=== PATIENT | male | born 1995 | race Caucasian/White ===

== ENCOUNTER 2023-09-21 10:36 | Outpatient (REF) | payer MEDICAID, SELFPAY ==
[2023-09-21 14:51] LABS: Calculated LDL 164 mg/dL (<100); Cholesterol 232 mg/dL (<200); HDL Cholesterol 61 mg/dL (40-60); Triglyceride 38 mg/dL (<150)
== END 2023-09-21 10:37 | disposition home or self-care (01) ==
LOC: NCHCN 10:36
PROVIDERS: Visit Provider Family Medicine
DX: Z13.220 Encounter for screening for lipoid disorders (principal)
CPT/HCPCS: 80061

== ENCOUNTER 2024-02-08 15:01 | Outpatient (REF) | payer MEDICAID, SELFPAY ==
--- OUTSIDE RECORDS SUMMARY | 2024-02-08 15:04 | XMS_ITS | Encounter Summary ---
Author Organization [facility] Address [address] [place] [address] Care Team Providers Care Tie Bucker Name Role Phone Uriah Olsen MD Primary Care Provider [phone] Reason for Referral * PT/OT/ST (Routine/Next Available) - Specialty Report Received Specialty Diagnoses / Procedures Referred By Liz lunsford Referred To Contact Rehab Therapies Diagnoses Acute midline low back pain without sciatica Right inguinal pain Rosie Holm PA-C [address] [facility] [address] [place] [address] [facility] [address] [place] [id number] Referral ID Status Reason Start Date Expiration Date Visits Requested Visits Authorized [id number] Specialty Report Received Specialty Services Required 3 1 1 Question Answer Scheduling Comments (optional ? describe specific scheduling needs if applicable): prefers [facility] Reason for Request: low back pain/right ant hip/inguinal pain Comments This referral may serve as a referral to occupational therapy if appropriate. Reason for Visit * Reason Comments Hip Pain Rt hip pain x 3 days and lower back pain x 3 weeks Cough Started yesterday Sore Throat Started last night Encounter Details Date Type Department Care Team (Late st Contact Info) Description 04/29/2023 9:15 EST Walk-In [facility] [address] [place] [id number] Rosie Holm PA-C [address] [facility] [address] [place] [address] Acute midline low back pain without sciatica (Primary Dx); Right inguinal pain Social History Tobacco Use Types Packs/Day Years Used Date Smoking Tobacco: Never Smokeless Tobacco: Never Alcohol Use Standard Drinks/Week Comments No 0 (1 standard drink = 0.6 oz pur e alcohol) Sex and Gender Information Value Date Recorded Sex Assigned at Not on file Gender Identity Male 04/29/2023 9:02 EST Sexual Orientation Not on file documented as of this encounter Last Filed Vital Signs Vital Sign Reading Time Taken Comments Blood Pressure 142/77 04/29/2023918 EST Pulse 71 04/29/2023 09 EST Temperature 36.7 ??C (98.1 ??F) 04/29/2023 0919 EST Respiratory Rate 20 04/29/2023 0919 EST Oxygen Saturation 99% 04/29/2023 09 EST Inhaled Oxygen Concentration - - Weight - - Height - - Body Mass Index - - documented in this encounter Functional Status Functional Status Response Date of Assess ment Because of a physical, menta l, or emotional condition, does this person have difficulty doing errands alone such as visiting a doctor's office or shopping? No 03/17/2022 Cognitive Status Response Date of Assessm ent Because of a physical, menta l, or emotional condition, does this person have serious difficulty concentrating, remembering, or making decisions? No 03/17/2022 documented as of this encounter Patient Instructions * Patient Instructions* Rosie Holm PA-C - 04/29/2023 9:15 EST Chris- You were seen today for a 3-week history of low back pain, in addition some new right-sided front hip groin discomfort the last 3 days. On exam your vital signs are normal. Her physical exam does show some discomfort when attempting toengage your hip flexors and internal rotator tendons and muscles. X-ray imaging was done given your constellation of symptoms. I see perhaps a very slight amount of early degenerative or arthritic changes in your very low back. Your hip films and pelvis appear normal. A formal radiology read will be done in the next hour. If the radiologist sees anything different Iwill call you. You do have a job that requires a moderate amount of lifting and bending. You also have some thingsthat you carry about your waist that might be causing some pinching of superficial nerves that could cause some discomfort as well as irritating your tendons and muscles that help to flex and rotate your leg. Would have you try a short course of muscle relaxants. I would be super conscious of your tool belt, I would try to carry a little higher or avoid wearingit for a week to see if this makes a difference. In addition I would advise not curing your wallet in the front pocket as this also creates a pressure point and could cause some issues. If you have not already I would recommend a regular schedule of ibuprofen 600 mg, 3 times a day with food for 5 days. I would try heat to the affected area at the front side. If your symptoms or not improving in 5 to 7 days you need a recheck either here or with your primary care provider. documented in this encounter Progress Notes * Samantha Malcolm LPN - 04/29/2023 0915 EST CC/HPI: Covid Screening: In the last 72 hours, has the patient had: New or unusual cough, shortness of breath, new nasal congestion, sore throat, fever, chills, body aches, or new loss of taste or smell without a reasonable alternative diagnosis*? (If yes, assign to [facility])- cough,slight s/t,body aches In the past 10 days, has the patient had a positive Covid test OR a confirmed close Covid exposure (<6ft for > 15mins in 24hr period)? (if yes, assign to [facility], regardless of vaccination status)-no-neg home test yesterday *may be determined by RN or in discussion with available provider (PIPELINES SUPERINTENDENT's and CCA's can defer to Charge Nurse to complete triage when appropriate) PCP: Uriah Olsen * Rosie Holm PA-C - 04/29/2023 1923 EST [facility] [place] [facility] Chief Complaint(s): Chief Complaint Patient presents with Hip Pain Rt hip pain x 3 days and lower back pain x 3 weeks Cough Started yesterday Sore Throat Started last night Assessment & Plan: Chris was seen today for hip pain, cough and sore throat. Diagnoses and all orders for this visit: Acute midline low back pain without sciatica - XR LUMBAR SPINE 2-3 VIEWS Right inguinal pain - XR HIP RIGHT 2-3 VIEWS, OPTIONAL PELVIS Chris Patel is a pleasant 28 y.o. male who presents with chief complaint of low back pain x 3 weeks. R anterior hip discomfort x 3 days. No known injury. Does wear tool belt, brown, bending lifting often. Denies fevers, sweats, chills. Vital signs are normal. PE with no gross abnl back; anterior hip with some discomfort on rotation/flex/ext. No hx fevers/mild intermittent pain only/not radicular and so low concern for infection/major nerve impingement. Xray imaging with mild early djd low lumbar. Favor msk; either imbalance low back/pelvic muscles and/or may be causing impingement right ant flexors w/tool belt/wallet locations. Would benefit from skilled PT. Referral placed. An appropriate medical screening examination was performed. The patient was assessed prior to discharge and deemed stable for discharge home. I printed material and reviewed home management and follow up in detail with patient, see patient instructions below. Patient is advised in use of [employer] to access any lab results or other pertinentvisit information. All questions are answered. Patient is advised to follow up for urgent reassessment for any new/worsening signs and symptoms here at [facility] or with the ER. Otherwise, follow up with PCP or [facility] is advised for symptoms that persist past current course of treatment or expected resolution as discussed. Patient verbalizes understanding and agreement with this plan of care. HPI: Onset bilat low back ain 3 weeks ago, not unusual, episodes in past, usually does not last this long. No pain buttocks/legs; no distal sensory strength changes. Last 3 days pain right low inguinal hip front region with certain movements and positions only. Primarily painful laying down on left side, preferred sleep position, ok/less if on back. Painful moving leg out to side, going from sit to stand. No mass appreciated. No fevers sweats chills. Is a brown. Wears very heavy tool belt daily. Keeps wallet in R front pocket, phone in left back pocket. ROS: ROS See HPI for details Objective: Vitals and nursing notes reviewed Examination: BP (!) 142/77 (BP Cuff Location: Right arm, BP Patient Position: Sitting, BP Cuff Sizes: Adult, long) Pulse 71 Temp 36.7 ??C (98.1 ??F) (Oral) Resp 20 SpO2 99% Physical Exam Constitutional: General: He is not in acute distress. Appearance: Normal appearance. Abdominal: General: There is no distension. Palpations: Abdomen is soft. There is no mass. Tenderness: There is no abdominal tenderness. Comments: With valsalva no appreciable mass right inguinal region and no reproduction of discomfort Musculoskeletal: Comments: Low back no gross deformity; wnl rom; non tender to palpation paraspine muscles, si and sciatic notch; hip full rom; mild discomfort active flexion; mild discomfort w/internal rotation seated; supine loading/rotating joint non tender; some discomfort with active flexion of hip/leg to extension; non tender trochanteric bursa Skin: General: Skin is warm and dry. Findings: No rash. Neurological: Mental Status: He is alert and oriented to person, place, and time. Sensory: No sensory deficit. Motor: No weakness. Gait: Gait normal. Deep Tendon Reflexes: Reflexes normal. Comments: Normal heel toe walk I independently interpreted any x-ray imaging done today as well as reviewed radiology reports. No gross abnormality appreciated by me; rads read pending at this time. Data reviewed with patient (past results): PMHx/pertinent labs/DI and pertinent recent OV's This note may be in part documented using Pin-Digital dictation software. Please forgive any errors, omissions or typos that may result from use of dictation. documented in this encounter Plan of Treatment Upcoming Encounters Date Type Department Care Team (Late st Contact Info) Description 03/04/2024 8:00 EST Office Visit [facility] Dermatology 3rd Floor [address] [address] Mikaela Scott PA-C [address] [facility], [address] [place] [phone] Scheduled Referrals Name Type Priority Associated Diagnoses Order Schedule AMB CONS/FOLLOW UP [place] [facility] [place]ine/Next Available Acute midline low back pain without sciatica Right inguinal pain Expected: 05/06/2023 (Approximate), Expires: 04/29/2024 documented as of this encounter Procedures Procedure Name Priority Date/Time Associated Diagnosis Comments XR LUMBAR SPINE 2-3 VIEWS STAT 04/29/2023 9:54 EST Acute midline low back pain without sciatica XR HIP RIGHT 2-3 VIEWS, OPTIONAL PELVIS STAT 04/29/2023 9:54 EST Right inguinal pain documented in this encounter Results * XR LUMBAR SPINE 2-3 VIEWS (04/29/2023 9:54 EST) Anatomical Region Laterality Modality Spine Computed Radiogr aphy 04/29/2023 9:43 EST Impressions 04/29/2023 10:02 EST Minimal degenerative disc disease at L4-L5 and L5-S1. No acute abnormality. THIS DOCUMENT HAS BEEN ELECTRONICALLY SIGNED BY VIVIAN MADDOX MD FOR ANY QUESTIONS OR CONCERNS REGARDING THIS REPORT PLEASE CALL [facility] AT [phone] Narrative 04/29/2023 10:02 EST PROCEDURE INFORMATION: Exam: XR Lumbosacral Spine Exam date and time: 04/29/2023 9:43 AM Age: 28 years old Clinical indication: Low back pain, unspecified; Additional info: Pain low back x 3 weeks worsening TECHNIQUE: Imaging protocol: Radiologic exam of the lumbosacral spine. Views: 2 or 3 views. COMPARISON: No relevant prior studies available. FINDINGS: Bones/joints: No fracture, malalignment or other acute bone or joint abnormality. Minimal chronic degenerative disease is present with mild narrowing of the L4-L5 and L5-S1 discs. Soft tissues: Unremarkable. Procedure Note Vivian Maddox MD - 04/29/2023 PROCEDURE INFORMATION: Exam: XR Lumbosacral Spine Exam date and time: 04/29/2023 9:43 AM Age: 28 years old Clinical indication: Low back pain, unspecified; Additional info: Pain low back x 3 weeks worsening TECHNIQUE: Imaging protocol: Radiologic exam of the lumbosacral spine. Views: 2 or 3 views. COMPARISON: No relevant prior studies available. FINDINGS: Bones/joints: No fracture, malalignment or other acute bone or joint abnormality. Minimal chronic degenerative disease is present with mild narrowing of the L4-L5 and L5-S1 discs. Soft tissues: Unremarkable. IMPRESSION Minimal degenerative disc disease at L4-L5 and L5-S1. No acute abnormality. THIS DOCUMENT HAS BEEN ELECTRONICALLY SIGNED BY VIVIAN MADDOX MD FOR ANY QUESTIONS OR CONCERNS REGARDING THIS REPORT PLEASE CALL [facility] [phone] Rosie Holm PA-C IMG DIAGNOSTIC I MAGING ORDERABLES * XR HIP RIGHT 2-3 VIEWS, OPTIONAL PELVIS (04/29/2023 9:54 EST) Anatomical Region Laterality Modality Lower Extremities Right Computed Radio graphy 04/29/2023 9:45 EST Impressions 04/29/2023 10:02 EST No significant abnormality. THIS DOCUMENT HAS BEEN ELECTRONICALLY SIGNED BY VIVIAN MADDOX MD FOR ANY QUESTIONS OR CONCERNS REGARDING THIS REPORT PLEASE CALL [facility] AT [phone] Narrative 04/29/2023 10:02 EST PROCEDURE INFORMATION: Exam: XR Right Hip Exam date and time: 04/29/2023 9:45 AM Age: 28 years old Clinical indication: Right lower quadrant pain; Hip pain; Right hip; Additional info: Pain right hip/inguinal region; No injury TECHNIQUE: Imaging protocol: Radiologic exam of the right hip. Views: 2 or 3 views hip with pelvis when performed. COMPARISON: CR XR LUMBAR SPINE 2-3 VIEWS 04/29/2023 9:43 AM FINDINGS: Bones/joints: Unremarkable. No acute fracture. Soft tissues: Unremarkable. Procedure Note Vivian Maddox MD - 04/29/2023 PROCEDURE INFORMATION: Exam: XR Right Hip Exam date and time: 04/29/2023 9:45 AM Age: 28 years old Clinical indication: Right lower quadrant pain; Hip pain; Right hip; Additional info: Pain right hip/inguinal region; No injury TECHNIQUE: Imaging protocol: Radiologic exam of the right hip. Views: 2 or 3 views hip with pelvis when performed. COMPARISON: CR XR LUMBAR SPINE 2-3 VIEWS 04/29/2023 9:43 AM FINDINGS: Bones/joints: Unremarkable. No acute fracture. Soft tissues: Unremarkable. IMPRESSION No significant abnormality. THIS DOCUMENT HAS BEEN ELECTRONICALLY SIGNED BY VIVIAN MADDOX MD FOR ANY QUESTIONS OR CONCERNS REGARDING THIS REPORT PLEASE CALL [facility] [phone] Rosie Holm PA-C IMAnny DIAGNOSTIC I MAGING ORDERABLES documented in this encounter Visit Diagnoses Diagnosis Acute midline low back pain without sciatica- Primary Right inguinal pain Abdominal pain, right lower quadrant documented in this encounter Historical Medications * This list may reflect changes made after this encounter. Medication Sig Dispensed Refills Start Date End Date diphenhydrAMINE-acetamino phen 25-500 mg tablet Take 2 Tablets by mouth at bedtime as needed. added in this encounter Care Teams Tie Bucker Relationship Specialty Start Date End Date Uriah Olsen MD [address] [place] [address] PCP - General 05/29/11 documented as of this encounter
--- OUTSIDE RECORDS SUMMARY | 2024-02-08 15:04 | XMS_ITS | Encounter Summary ---
Author Organization [facility] Address [address] [place] [address] Care Team Providers Care Ancillary Services Manager Therapy Name Role Phone Uriah Olsen MD Primary Care Provider [phone] Encounter Details Date Type Department Care Team (Late st Contact Info) Description 06/30/2011 Abstract [facility] Pediatric Orthopedics - [address] [place] [address] Broderick Negrete MD Social History Tobacco Use Types Packs/Day Years Used Date Smoking Tobacco: Never Assessed Alcohol Use Standard Drinks/Week Comments No 0 (1 standard drink = 0.6 oz pur e alcohol) Sex and Gender Information Value Date Recorded Sex Assigned at Not on file Gender Identity Male 04/29/2023 9:02 EST Sexual Orientation Not on file documented as of this encounter Plan of Treatment Upcoming Encounters Date Type Department Care Team (Late st Contact Info) Description 03/04/2024 8:00 EST Office Visit [facility] Dermatology 3rd Floor [address] [phone] Mikaela Scott PA-C [address] [facility], [address] [place] [phone] documented as of this encounter Visit Diagnoses Not on filedocumented in this encounter Care Teams Ancillary Services Manager Therapy Relationship Specialty Start Date End Date Uriah Olsen MD [address] Jose Manuel [address] [place] [id number] PCP - General 05/29/11 documented as of this encounter
--- OUTSIDE RECORDS SUMMARY | 2024-02-08 15:04 | XMS_ITS | Referral Summary ---
Author Organization [facility] Address [address] [place] [address] Care Team Providers Care Wound Care Coordinator Name Role Phone Uriah Olsen MD Primary Care Provider Allergies No known active allergies Medications Medication Sig Dispensed Refills Start Date End Date Status ketoconazole (NIZORAL) 2 % creamIndications:John orrheic dermatitis Apply to rash on face once daily as needed. 30 g 11 07/01/2021 Active Additional Information Patient not taking.Reported on 04/29/2023 ketoconazole (NIZORAL) 2 % shampooIndications:S eborrheic dermatitis Massage into scalp and sheriff and let sit for 3-5 minutes before rinsing off. Repeat daily as needed for flares. 120 mL 11 07/01/2021 Active Additional Information Patient not taking.Reported on 04/29/2023 diphenhydrAMINE-acet aminophen 25-500 mg tablet Take 2 Tablets by mouth at bedtime as needed. Active Active Problems Problem Noted Date Diagnosed Date Knee problem 06/23/2011 Overview: Bilateral Left > Right Social History Tobacco Use Types Packs/Day Years Used Date Smoking Tobacco: Never Smokeless Tobacco: Never Alcohol Use Standard Drinks/Week Comments No 0 (1 standard drink = 0.6 oz pur e alcohol) Sex and Gender Information Value Date Recorded Sex Assigned at Not on file Gender Identity Male 04/29/2023 9:02 EST Sexual Orientation Not on file Last Filed Vital Signs Vital Sign Reading Time Taken Comments Blood Pressure 142/77 04/29/2023 0919 EST Pulse 71 04/29/2023 0919 EST Temperature 36.7 ??C (98.1 ??F) 04/29/2023 0919 EST Respiratory Rate 20 04/29/2023 0919 EST Oxygen Saturation 99% 04/29/2023 0919 EST Inhaled Oxygen Concentration - - Weight - - Height - - Body Mass Index - - Functional Status Functional Status Response Date of [...] concentrating, remembering, or making decisions? No 03/17/2022 Plan of Treatment Upcoming Encounters Date Type Department Care Team (Late st Contact Info) Description 03/04/2024 8:00 EST Office Visit [facility] Dermatology 3rd Floor [facility] [address] [place] [address] Mikaela Scott PA-C 111 [facility], [address] [place] [phone] Care Teams Wound Care Coordinator Relationship Specialty Start Date End Date Uriah Olsen MD [address] [place] [phone] PCP - General 05/29/11
--- OUTSIDE RECORDS SUMMARY | 2024-02-08 15:04 | XMS_ITS | Encounter Summary ---
Author Organization [facility] Address [address] [place] [address] Care Team Providers Care Web Designer Developer Name Role Phone Uriah Olsen MD Primary Care Provider Encounter Details Date Type Department Care Team (Late st Contact Info) Description 07/18/2019 Lab Requisition [facility] Pathology & Laboratory Medicine [address] [address] Arjun Horton MD [address] [place] [phone] Social History Tobacco Use Types Packs/Day Years [...] Info) Description 03/04/2024 8:00 EST Office Visit [facility] Dermatology 3rd Floor [address] [phone] Mikaela Scott PA-C [address] [place] [address], [address] [place] [phone] documented as of this encounter Procedures Procedure Name Priority Date/Time Associated Diagnosis Comments COVID-19 TESTING Today 07/15/2019 13:5 7 EDT documented in this encounter Results * COVID-19 TEST [facility] (07/15/2019 13:57 EDT) COVID-19 Result Not Detected Not Detected 07/23/2019 10:57 EDT [facility] Comment:Assay by Uniphore Swab ENTIRE NASOPHARYNX / Unknown 07/15/2019 13:57 EDT 07/18/2019 22:54 EDT Arjun Horton MD MICROBIOLOGY - GENER AL ORDERABLES [facility] [address] [place], [place] [phone] documented in this encounter Visit Diagnoses Not on filedocumented in this encounter Care Teams Web Designer Developer Relationship Specialty Start Date End Date Uriah Olsen MD [address] [facility] [address] [place] [address] PCP - General 05/29/11 documented as of this encounter
--- OUTSIDE RECORDS SUMMARY | 2024-02-08 15:04 | XMS_ITS | Encounter Summary ---
Author Organization [facility] Address [address] [place] [address] Care Team Providers Care Receiving Room Clerk Name Role Phone Uriah Olsen MD Primary Care Provider [phone] Reason for Visit * Reason Onset Date Comments Results 05/01/2023 Encounter Details Date Type Department Care Team (Late st Contact Info) Description 05/01/2023 Telephone [facility] [address] [place], [place] [phone] [facility] [address] [place], [place] [phone] Results Social History Tobacco Use Types Packs/Day Years Used Date Smoking Tobacco: Never Smokeless Tobacco: Never Alcohol Use Standard Drinks/Week Comments No 0 (1 standard drink = 0.6 oz pur e alcohol) Sex and Gender Information Value Date Recorded Sex Assigned at Not on file Gender Identity Male 04/29/2023 9:02 EST Sexual Orientation Not on file documented as of this encounter Functional Status Functional Status Response [...] No 03/17/2022 documented as of this encounter Miscellaneous Notes * Telephone Encounter - Elza Quiñonez RN - 05/02/2023 0364 EST Pt made aware of xray results. * Telephone Encounter - Jennifer Rudd PA-C - 05/01/2023 1640 EST The x-rays of the pelvis were negative, there was some mild degenerative changes on the lumbar spine, no acute abnormality noted on any of the x-rays * Telephone Encounter - Alyssa Kirkland - 05/01/2023 1628 EST Chris left a voice message he would like the results of his xray done on 04-29-23, Thank you documented in this encounter Plan of Treatment Upcoming Encounters Date Type Department Care Team (Late st Contact Info) Description 03/04/2024 8:00 EST Office Visit [facility] Dermatology 3rd Floor [facility] [address] [place], [place] [address] Mikaela Scott PA-C [address] [facility], [address] [place] [phone] documented as of this encounter Visit Diagnoses Not on filedocumented in this encounter Care Teams Receiving Room Clerk Relationship Specialty Start Date End Date Uriah Olsen MD [address] [place] [id number] PCP - General 05/29/11 documented as of this encounter
--- OUTSIDE RECORDS SUMMARY | 2024-02-08 15:04 | XMS_ITS | Encounter Summary ---
Author Organization [facility] Address [address] [place] [address] Care Team Providers Care Cable Weaver Name Role Phone Uriah Olsen MD Primary Care Provider [phone] Reason for Visit * Reason Comments New Patient Visit Patient has extreme dry skin on face and scalp for a couple of years. Enlarging lesion on the left lower leg for a few weeks. * Referral (Routine) - Closed Specialty Diagnoses / Procedures Referred By Liz lunsford Referred To Contact Dermatology Diagnoses Dry skin Cristy Pitts FNP [address], [address] [place] [address] [facility] Dermatology [address] [place] [address] Referral ID Status Reason Start Date Expiration Date Visits Re quested Visits Authorized [id number] Closed 1 1 Encounter Details Date Type Department Care Team (Late st Contact Info) Description 07/01/2021 14:00 EST Office Visit [facility] Dermatology [address]th [address] [phone] Mikaela Scott PA-C 111 [facility], [address] [place] [address] Seborrheic dermatitis (Primary Dx); Dermatofibroma Social History Tobacco Use Types Packs/Day Years Used Date Smoking Tobacco: Never Smokeless Tobacco: Never Alcohol Use Standard Drinks/Week Comments No 0 (1 standard drink = 0.6 oz pur e alcohol) Sex and Gender Information Value Date Recorded Sex Assigned at Not on file Gender Identity Male 04/29/2023 9:02 EST Sexual Orientation Not on file documented as of this encounter Ordered Prescriptions Prescription Sig Dispensed Refills Start Date End Da te ketoconazole (NIZORAL) 2 % shampooIndications:Seborrh eic dermatitis Massage into scalp and sheriff and let sit for 3-5 minutes before rinsing off. Repeat daily as needed for flares. 120 mL 11 07/01/2021 ketoconazole (NIZORAL) 2 % creamIndications:Seborrhei c dermatitis Apply to rash on face once daily as needed. 30 g 11 07/01/2021 documented in this encounter Progress Notes * Mikaela Scott PA-C - 07/01/2021 1400 EST DIVISION OF DERMATOLOGY NEW PATIENT EVALUATION Chief Complaint Patient presents with ??? New Patient Visit Patient has extreme dry skin on face and scalp for a couple of years. Enlarging lesion on the left lower leg for a few weeks. Last Dermatology office visit: NPV SUBJECTIVE Mr. Patel is a 26 y.o. male who presents for evaluation and treatment of dry skin on his scalp and face. He has been struggling with dry skin on his face and scalp for years. The severity waxes and wanes. Treatment options include yjnq-oqg-nklvhoa lotions including coconut oil with little improvement. She denies any prescription treatment attempts. In addition he has a spot on his left calf that has been present for approximately 6 years. In the last couple of months he has noticed an increase in size. This lesion has remained asymptomatic. Initially, he thinks he had a scar there but is unsure given it was so many years ago. They were referred to Dermatology by CAROL Lovell. OBJECTIVE VS: There were no vitals taken for this visit. He has Lincoln type II skin. Cutaneous focused exam of the face, scalp and left calf was performed. Pertinent cutaneous findingsare listed below: -Scattered over the scalp is thick sebaceous nonadherent scale -Glabella and sheriff distribution: Minong scale - left medial calf: 1.5 x 1 cm hyperpigmented papulonodule ASSESSMENT/PLAN Seborrheic dermatitis- face and scalp - Education and counseling provided. - ketoconazole (NIZORAL) 2 % cream; Apply to rash on face once daily as needed. Dispense: 30 g; Refill: 11 - ketoconazole (NIZORAL) 2 % shampoo; Massage into scalp and sheriff and let sit for 3-5 minutes before rinsing off. Repeat daily as needed for flares. Dispense: 120 mL; Refill: 11 Favor Dermatofibroma of left calf - Given the recent increase in size I recommend an excisional biopsy to confirm the diagnosis of a dermatofibroma and to rule out a DFSP. - Patient will schedule an excision in the next couple of months with Nicol Carranza PA-C. He will f/u with Nicol Carranza PA-C for an excisional biopsy or in the interim should problems arise. The attending physician was available for this visit. Mikaela Scott PA-C, 07/01/2021, 14:10 documented in this encounter Plan of Treatment Upcoming Encounters Date Type Department Care Team (Late st Contact Info) Description 03/04/2024 8:00 EST Office Visit [facility] Dermatology 3rd Floor [address] [phone] Mikaela Scott PA-C 111 [facility], [address] [place] [phone] documented as of this encounter Visit Diagnoses Diagnosis Seborrheic dermatitis- Primary Seborrheic dermatitis, unspecified Dermatofibroma Benign neoplasm of skin, site unspecified documented in this encounter Care Teams Cable Weaver Relationship Specialty Start Date End Date Uriah Olsen MD [address] [place] [address] PCP - General 05/29/11 documented as of this encounter
--- OUTSIDE RECORDS SUMMARY | 2024-02-08 15:04 | XMS_ITS | Encounter Summary ---
Author Organization [facility] Address [address] [place] [address] Care Team Providers Care Field Organizer Name Role Phone Uriah Olsen MD Primary Care Provider [phone] Reason for Visit * Reason Onset Date Comments Other 08/30/2023 Encounter Details Date Type Department Care Team (Late st Contact Info) Description 08/30/2023 Telephone [facility] Dermatology 3rd Floor [address] [phone] Nicol Carranza PA-C [address] [place] [address], [address] [place] [address] Other Social History Tobacco Use Types Packs/Day Years [...] encounter Miscellaneous Notes * Telephone Encounter - Betsy Brice - 08/30/2023 1104 EDT derm-[place] [facility]-08/30/23 is in media mgr documented in this encounter Plan of Treatment Upcoming Encounters Date Type Department Care Team (Late st Contact Info) Description 03/04/2024 8:00 EST Office Visit [facility] Dermatology 3rd Floor [facility] [address] [place], [place] [address] Mikaela Scott PA-C 111 [facility], [address] [place] [phone] documented as of this encounter Visit Diagnoses Not on filedocumented in this encounter Care Teams Field Organizer Relationship Specialty Start Date End Date Uriah Olsen MD [address] [facility] [address] [place] [address] PCP - General 05/29/11 documented as of this encounter
--- OUTSIDE RECORDS SUMMARY | 2024-02-08 15:04 | XMS_ITS | Clinical Summary ---
Author Organization [facility] Address [address] [place] [address] Care Team Providers Care Statue Maker Name Role Phone Uriah Olsen MD Primary Care Provider [phone] Allergies No known active allergies Medications Medication Sig Dispensed Refills Start Date End Date Status ketoconazole (NIZORAL) 2 % creamIndications:Ojhn orrheic dermatitis Apply to rash on face [...] problem 06/23/2011 Overview: Bilateral Left > Right Family History Medical History Relation Comments Anesthesia Problem Neg Hx Broken Bones Neg Hx Cancer Neg Hx Clotting Disorder Neg Hx Collagen Disease Neg Hx Diabetes Neg Hx Dislocations Neg Hx Osteoporosis Neg Hx Rheumatologic Disease Neg Hx Scoliosis Neg Hx Severe Sprains Neg Hx Social History Tobacco Use Types Packs/Day Years Used Date Smoking Tobacco: Never Smokeless Tobacco: Never Alcohol Use Standard Drinks/Week Comments No 0 (1 standard drink = 0.6 oz pur e alcohol) Sex and Gender Information Value Date Recorded Sex Assigned at Not on file Gender Identity Male 04/29/2023 9:02 EST Sexual Orientation Not on file Obstetrics History Last Filed Vital Signs Vital Sign Reading Time Taken Comments Blood Pressure 142/77 04/29/2023918 EST Pulse 71 04/29/2023 09 EST Temperature 36.7 ??C (98.1 ??F) 04/29/2023 09 EST Respiratory Rate 20 04/29/2023 09 EST Oxygen Saturation 99% 04/29/2023918 EST Inhaled Oxygen Concentration - - Weight - - Height - - Body Mass Index - - Plan of Treatment Upcoming Encounters Date Type Department Care Team (Late st Contact Info) Description 03/04/2024 8:00 EST Office Visit [facility] Dermatology 3rd Floor [address] [address] Mikaela Scott PA-C 111 [facility], [address] [place] [phone] Health Maintenance Due Date Last Done Comments Hepatitis C Screen 1997 Hepatitis B Vaccine (1 of 3 - 19+ 3-dose series) 01/23 COVID-19 Vaccine ( season) 2023 Care Teams Statue Maker Relationship Specialty Start Date End Date Uriah Olsen MD [address] [place] [address] PCP - General 05/29/11
--- OUTSIDE RECORDS SUMMARY | 2024-02-08 15:04 | XMS_ITS | Encounter Summary ---
Author Organization [facility] Address [address] [place] [address] Care Team Providers Care Coarse Wire Drawer Name Role Phone Uriah Olsen MD Primary Care Provider [phone] Reason for Visit * Reason Comments Other knee laxity Encounter Details Date Type Department Care Team (Late st Contact Info) Description 06/23/2011 13:15 EST Office Visit [facility] Pediatric Orthopedics [place] [address] Broderick eNgrete MD Knee problem (Primary Dx) Social History Tobacco Use Types Packs/Day Years Used Date Smoking Tobacco: Never Assessed Alcohol Use Standard Drinks/Week Comments No 0 (1 standard drink = 0.6 oz pur e alcohol) Sex and Gender Information Value Date Recorded Sex Assigned at Not on file Gender Identity Male 04/29/2023 9:02 EST Sexual Orientation Not on file documented as of this encounter Progress Notes * Broderick Negrete MD - 06/23/2011 1649 EST The Office Note has been dictated by me. Dictation number: [id number] documented in this encounter Consult Notes * Broderick Negrete MD - 06/26/2011 5103 EST [facility]OPAEDICS [facility] CONSULTATION - 06/23/2011 Uriah Olsen MD [facility] [address] [place] [address] Olsen: We [facility]. We were asked to seehim in consultation because of bilateral knee flexibility with popping. 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 He states that it occasionally pop when he gets up and straightens his knees. It happens more often on the left than the right, but it can sometimes occur on the right. He is otherwise doing satisfactorilyand only gets occasional pain. 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 He also enjoys biking. His past medical history reveals no major illnesses. He has had no prior operations. He is not taking any medications, has no allergies. He is home schooled and is currently in the 8th grade. On physical exam, in observing what he does, he actually does rotate the tibia on the distal femur using his muscles and gravity support. In the supine position, he is able to stabilize the distal femur and then actually rotate the tibial plateau on the distal femur. In testing him for ligamentous laxity, he is easily able to hyperextend his pinky, touch his thumb to his forearm and hyperextend his elbows. We believe that Chris does indeed have some ligamentous laxity, which is allowing him to do this rotatory subluxation of his knees. Since they are not causing any symptoms at this time, we did not believe he would benefit from any further studies. We recommended that he contact us in the future should any problems develop. Thank you for asking us to see Chris in consultation for his knee flexibility and please do not hesitate to contact me should you have questions. Sincerely yours, Electronically Signed by Broderick Negrete MD 06/29/2011 12:53 Broderick Negrete MD [address] [place] [id number] - Broderick Negrete MD - KELSEY Job ID: SM Doc ID: [id number] Ext Doc ID: [id number] cc: Uriah Olsen MD documented in this encounter Plan of Treatment Upcoming Encounters Date Type Department Care Team (Late st Contact Info) Description 03/04/2024 8:00 EST Office Visit [facility] Dermatology 3rd Floor [facility] [address] [place] [address] Mikaela Scott PA-C [address] [facility], [address] [place] [phone] documented as of this encounter Visit Diagnoses Diagnosis Knee problem- Primary Unspecified disorder of lower leg joint documented in this encounter Care Teams Coarse Wire Drawer Relationship Specialty Start Date End Date Uriah Olsen MD [address] [place] [address] PCP - General 05/29/11 documented as of this encounter
--- OUTSIDE RECORDS SUMMARY | 2024-02-08 15:04 | XMS_ITS | Encounter Summary ---
Author Organization [facility] Address [address] [place] [address] Care Team Providers Care Potato Bucker Name Role Phone Uriah Olsen MD Primary Care Provider [phone] Reason for Visit * Reason Comments Skin Lesion Excisional biopsy le ft calf Encounter Details Date Type Department Care Team (Late st Contact Info) Description 03/17/2022 15:00 EST Office Visit [facility] Dermatology [address]th Floor [address] [phone] Nicol Carranza PA-C 111 [facility], [address] [place] [address] Dermatofibroma (Primary Dx); Skin symptom Social History Tobacco Use Types Packs/Day Years [...] this encounter Patient Instructions * Patient Instructions* Nicol Carranza PA-C - 03/17/2022 15:00 EST WOUND CARE INSTRUCTIONS FOR SKIN SURGERY WOUND CARE: The white pressure bandage should remain in place for 24 hours and then this can be removed. There is dermabond (skin glue) over the sutured wound. Marcelino steri strips are covering the woundto prevent suture material from catching on clothing, and these can get wet. You can leave the steri strips in place until suture removal, and additional tapes have been given if needed. The dermabond will start to peel off typically in 1-2 weeks, typically when suture is removed. SUTURE REMOVAL: There is a blue, non-absorbable suture under the surface of skin -- this should be removed in 2 weeks. This can be done at our clinic and an appointment with the nursing team will be given. If you are removing it yourself with provided suture removal kit, then follow these instructions: - Using scissor, cut blue suture thread at end of wound. - Use tweezer to pull knot on end gently away from wound and the suture should glide out. - Following suture removal, no further bandage is needed if incision is intact. If there is an openarea, then vaseline and a small bandage can be used to cover, or steri strips can be placed over incision if you would like. DISCOMFORT: Expect some discomfort. Extra-Strength Tylenol, taken as directed by the school bus driver/mechanic, will help relieve pain. If Tylenol does not provide relief, you may alternate with ibuprofen. Alternating every 3 hours between Tylenol and Ibuprofen typically provides excellent pain relief. If the pain is severe please call the office. BLEEDING: You may notice some blood on the edges of the dressing the first day - this is NORMAL. Ifthe bleeding soaks through the dressing, remove the dressing, and apply firm, steady pressure with a moist clean wash cloth for fifteen minutes. If the bleeding stops, place another bandage on wound.If not, call our office at . ACTIVITY: Relax and limit your physical activity for the first 48 hours after surgery. Your provider may ask you to limit activity for a longer period of time. If the surgery was on the face or scalp, keep your head elevated. APPEARANCE: There may be swelling and bruising around the wound. Some redness is normal, but the wound should not be red, hot and tender. If the wound becomes increasingly inflamed, warm, or drains pus, please call our office. With surgery on the nose, eyelids, forehead, or scalp your eyes may become swollen and bruised. Please CALL OUR OFFICE IF YOU EXPERIENCE: or Increasing redness Wound is warm or hot to touch Increasing pain Drainage with a foul odor Rapid swelling of the wound Fever or chills documented in this encounter Progress Notes * Nicol Carranza PA-C - 03/17/2022 1500 EST Images from the original note were not included. DERMATOLOGY OUTPATIENT VISIT NOTE Chief Complaint Patient presents with ??? Skin Lesion Excisional biopsy left calf SUBJECTIVE: Mr. Patel presents today for evaluation of a skin lesion he has noticed on his left calf. He notes that this lesion has been present for 6 years, and reports slow growth. He has no other skin concerns today. For full Medical, Surgical, Family, and Social histories as well as Review of Systems, Medications and Allergies please see those sections of this encounter in the electronic chart which I have personally reviewed. OBJECTIVE: A focused cutaneous examination of the affected area revealed the following: ?? On his left calf, there is a 1.5 cm x 1.0 cm brown firm papulonodule ASSESSMENT / PLAN: Likely dermatofibroma of the left calf ?? LINEAR EXCISION: Due to the lesion type, size and location, I feel that elliptical excision withlayered closure is indicated. The risks of excision and repair, including but not limited to, bleeding, scarring, infection, recurrence, injury to functionally or cosmetically important nerve structures and an unsatisfactory cosmetic result were reviewed. . The patient understands that following the repair, many months may elapse before a decision can be made about the final cosmetic result, and that, in some cases a revision may be necessary to optimize the outcome. The patient has no absolutecontraindications to outpatient surgery under local anesthesia and understands the importance of fol lowing our instructions regarding activity and wound care following the procedure. The patient was given an opportunity to ask questions, and I believe that all of their questions were answered satisfactorily. The patient has been scheduled to undergo surgery today. Return for follow up as needed. Nicol Carranza PA-C LINEAR EXCISION AND LAYERED CLOSURE PROCEDURE NOTE PATIENT INFORMATION: Chris Patel [id number] 1995 DATE OF PROCEDURE: 03/17/2022 SURGEON: Nicol Carranza PA-C EXERCISE PHYSIOLOGIST: Haritha Paulino MA PREOPERATIVE DIAGNOSIS: Dermatofibroma LOCATION: left calf LESION SIZE: 1.3 cm x 0.8 cm MARGINS PER SIDE: 0.2 cm TOTAL EXCISION DIAMETER: 1.7 cm x 1.2 cm INDICATIONS: The indication, risks, benefits and alternatives to this procedure were discussed in detail with the patient and all questions were answered. The patient had no contraindications to surgery with local anesthesia. Informed consent was obtained in writing. PROCEDURE: Patient position: supine Anesthesia: 1% lidocaine with epinephrine 1:100,000 local infiltration Prep: Chlorhexidine The patient was brought to the operative suite. The lesion was identified, prepped and draped in the usual sterile fashion. Following complete local anesthesia, the skin was incised in a fusiform fashion to the level of the subcutis with a number 15 surgical blade. The wound was undermined in all di rections with care to avoid functionally important nerves and vessels. Hemostasis was achieved withspot electrocoagulation. The wound edges were approximated in a layered fashion with 4.0 PDS (polydioxanone) buried interrupted sutures at the level of the dermis and subcutis and running 4.0 PDS (polydioxanone) suture at the level of the epidermis. The final wound length was 3.0 centimeters. The wound edges were cleansed with peroxide and dressed with petrolatum, a non-adherent gauze pad and Hypafix?? tape. Verbal and written wound care instructions were given. The patient tolerated the procedure well and left the operating suite in good condition. The surgical specimen was submitted to pathology for histologic evaluation. POSTOPERATIVE DIAGNOSIS: Dermatofibroma FINAL PROCEDURE: Excision and layered linear repair BLOOD LOSS: minimal OPERATIVE TIME: 30 minutes COMPLICATIONS: none NOTE: None Nicol Carranza PA-C documented in this encounter Miscellaneous Notes * Result Encounter Note - Nicol Carranza PA-C - 03/17/2022 1500 EST Letter sent with results. Lesion fully removed and no further treatment needed. Nicol Carranza PA-C documented in this encounter Plan of Treatment Upcoming Encounters Date Type Department Care Team (Late st Contact Info) Description 03/04/2024 8:00 EST Office Visit [facility] Dermatology 3rd Floor [address] [phone] Mikaela Scott PA-C 111 [facility], [address] [place] [address] documented as of this encounter Procedures Procedure Name Priority Date/Time Associated Diagnosis Comments SURGICAL PATHOLOGY Routine 03/17/2022 15 :37 EST Dermatofibroma Skin symptom documented in this encounter Results * SURGICAL PATHOLOGY (03/17/2022 15:37 EST) Note to Patient The following pathology results have been interpreted by your pathologist and may be available to you before your health provider has had the opportunity to review them. Please allow time for your provider to receive these results and explore management options, if applicable. 03/21/2022 13:00 [facility] Final Diagnosis A. SKIN OF CALF, LEFT, EXCISION: - Hypertrophic dermal scar. 03/21/2022 13:00 [facility] Attestation By the signature below, the attending physician certifies that they have 1) personally conducted a gross and/or microscopic examination of the described specimen(s), and/or personally interpreted the results of laboratory testing of the described specimen(s), and 2) personally rendered or confirmed the above diagnosis. 03/21/2022 13:00 [facility] at 1300 Clinical History Firm enlarging nodule, present many years; Dx: DF vs pilomatricoma; clinical diagnosis code: D23.9, R23.9 03/21/2022 13:00 [facility] Gross Description A. Received in formalin labelled with proper patient identification (initials G, E) and left calf is an unoriented elliptical excision of hair-bearing skin obstructed with purple marking ink (2.1 x 1.1 cm and is excised to a depth of 0.5 cm). There is an eccentric rubbery to firm papule that measures 0.5 x 0.5 cm. The margins are subsequently inked blue and the specimen is serially sectioned. Sectioning reveals a marcelino-white focally brown and firm cut surface. Entirely submitted as A1-A3 6 central sections and A4 2 tips, reverse en face. MACKENZIE LANGSTON 03/20/2022 11:55 03/21/2022 13:00 [facility] Performing Lab [facility] 03/21/2022 13:00 [facility] Scanned Images 03/21/2022 13:00 [facility] Tissue TISSUE SPECIMEN FROM SKIN / Unknown Collection, Other / Unknown 03/17/2022 15:37 EST 03/17/2022 20:17 EST Nicol Carranza PA-C PATHOLOGY [facility] [address] [place] [address] documented in this encounter Visit Diagnoses Diagnosis Dermatofibroma- Primary Benign neoplasm of skin, site unspecified Skin symptom Other symptoms involving skin and integumentary tissues documented in this encounter Care Teams Potato Bucker Relationship Specialty Start Date End Date Uriah Olsen MD [address] [address] PCP - General 05/29/11 documented as of this encounter
--- OUTSIDE RECORDS SUMMARY | 2024-02-08 15:04 | XMS_ITS | Encounter Summary ---
Author Organization [facility] Address [address] [place] [address] Care Team Providers Care City Marshal Name Role Phone Uriah Olsen MD Primary Care Provider [phone] Encounter Details Date Type Department Care Team (Late st Contact Info) Description 07/04/2023 Documentation Visit [facility] [address] [place], [place] [id number] Kylah Patino, PT [address] [place], [place] [id number] Social History Tobacco Use Types Packs/Day Years [...] No 03/17/2022 documented as of this encounter Progress Notes * Kylah Patino, PT - 07/04/2023 1124 EST [facility] [phone] Physical Therapy Discharge Not Seen Recently Therapy Diagnosis: low back pain secondary to postural impairments Referring Clinician: KIYA Long Reporting Period: eval 05/24/23 Physical Therapy Program to Date: In summary, the program has included: therex, evcuate Goal Review: Short-Term Goals Timeframe: 4 weeks 1) pt will be independent with flexibility 3x/week 2) pt will report no pain in back with getting up from sitting Long-Term Goals Timeframe: 8 weeks 1) Patient will demonstrate improved low back pain and decreased functional impairment as evidencedby a score of 8% on the Modified Oswestry meeting the 8- 12% MCID for this assessment. 2) pt will report being able to sleep 6 hours with no interruption from back pain Seen for eval only Discharge Reason: Called to discontinue therapy at this time Discharge patient at this time; future therapy will require a new physician's referral. documented in this encounter Plan of Treatment Upcoming Encounters Date Type Department Care Team (Late st Contact Info) Description 03/04/2024 8:00 EST Office Visit [facility] Dermatology 3rd [address] [id number] Mikaela Scott PA-C [address] [facility], [address] [place] [id number] documented as of this encounter Visit Diagnoses Not on filedocumented in this encounter Care Teams City Marshal Relationship Specialty Start Date End Date Uriah Olsen MD [address] [place] [id number] PCP - General 05/29/11 documented as of this encounter
[2024-02-11 12:50] LABS: Chlamydia Result Negative (Negative); GC Result Negative (Negative)
== END 2024-02-08 15:02 | disposition home or self-care (01) ==
LOC: NCHCN 15:01
PROVIDERS: Visit Provider Family Medicine
DX: Z11.59 Encounter for screening for other viral diseases (principal)
CPT/HCPCS: 87491; 87591

== ENCOUNTER 2024-03-25 18:00 | Outpatient (REF) | payer MEDICAID, SELFPAY ==
[2024-03-28 10:07] LABS: HSV Type 1 Ab, IgG Negative (Negative); HSV Type 2 Ab, IgG Negative (Negative)
== END 2024-03-25 18:01 | disposition home or self-care (01) ==
LOC: NCHCN 18:00
PROVIDERS: Visit Provider Family Medicine
DX: Z20.2 Contact with and (suspected) exposure to infections with a predominantly sexual mode of transmission (principal)
CPT/HCPCS: 86695; 86696